=== PATIENT | male | born 1955 | race Caucasian/White ===

== ENCOUNTER 2020-01-17 14:04 | Emergency (ER) | payer OTHER ==
[~2020-01-17] VITALS: Ht 172.7 cm; Wt 81.6 kg
== END 2020-01-17 20:38 | disposition home or self-care (01) ==
LOC: ER 14:04
DX: R53.83 Other fatigue (principal); R53.0 Neoplastic (malignant) related fatigue; T45.1X5A Adverse effect of antineoplastic and immunosuppressive drugs, initial encounter; C7A.090 Malignant carcinoid tumor of the bronchus and lung; C7B.03 Secondary carcinoid tumors of bone; D69.49 Other primary thrombocytopenia; R63.0 Anorexia; R53.1 Weakness

== ENCOUNTER 2020-02-02 14:50 | Emergency (ER) | payer OTHER ==
[~2020-02-02] VITALS: Ht 165.1 cm; Wt 68.0 kg
== END 2020-02-02 21:37 | disposition designated cancer center or children's hospital (05) ==
LOC: ER 14:50 → CPU-OBS 14:54 → ER 14:54
DX: I60.6 Nontraumatic subarachnoid hemorrhage from other intracranial arteries (principal); I67.82 Cerebral ischemia; I63.89 Other cerebral infarction; G93.6 Cerebral edema; R68.89 Other general symptoms and signs; R53.1 Weakness; R53.83 Other fatigue; R40.0 Somnolence; I16.1 Hypertensive emergency; I10 Essential (primary) hypertension; C7A.090 Malignant carcinoid tumor of the bronchus and lung; C7B.03 Secondary carcinoid tumors of bone; T45.1X5A Adverse effect of antineoplastic and immunosuppressive drugs, initial encounter; Z03.818 Encounter for observation for suspected exposure to other biological agents ruled out; Y92.89 Other specified places as the place of occurrence of the external cause
CPT/HCPCS: G0378; G0379; 36600; 70450; 82805; 93005